=== PATIENT | female | born 1990 | race Caucasian/White ===

== ENCOUNTER 2017-08-12 12:47 | Outpatient (CLI) | payer OTHER ==
[~2017-08-12 12:47] MED LIST: BCPILLS PO; CPR500 PO; OXYC1TAB3 PO
--- NOTE | 2017-08-12 14:45 | Progress Note ---
Progress Note Date of Service Aug 12, 2017. Progress Note Outpatient Note 26 F P1001 at 39.3 weeks admitted for rule out labor. Cervix 3/50/-3/vertex. FHT CAT 1 with no regular contractions. Will d/c home not in labor. Follow up next week in office.
== END 2017-08-12 15:05 | disposition home or self-care (01) ==
LOC: C.LD 12:47 → C.OPB 12:47 → EDSTATUS 13:07 → C.OPB 15:05
PROVIDERS: ATTEND Obstetrics & Gynecology
DX: Z34.83 Encounter for supervision of other normal pregnancy, third trimester (principal); Z3A.39 39 weeks gestation of pregnancy

== ENCOUNTER 2017-08-19 03:47 | Inpatient (IN) | payer OTHER ==
[~2017-08-19] VITALS: Ht 165.1 cm; Wt 95.9 kg
[2017-08-19] MEDS ORDERED: LACTATED RINGER'S 1000ML 1,000 ML IV SCH ×2 (04:16→13:45)
[2017-08-19] MEDS ORDERED: LACTATED RINGER'S 1000ML 1,000 ML IV PRN (04:16)
[2017-08-19] MEDS ORDERED: BUPIVACAINE 0.25% 30 ML VIAL ONE (04:32)
[2017-08-19] MEDS ORDERED: EpHEDrine SULFATE INJ 50 MG/ML AMP ONE (04:33)
[2017-08-19] MEDS ORDERED: FENTANYL 2MCG/ML ROPIV 1.25MG/ML 100ML BAG EPI ONE (04:33)
[2017-08-19] MEDS ORDERED: FENTANYL CITRATE INJ 50 MCG/1 ML 2 ML VIAL ONE (04:33)
[2017-08-19] MEDS ORDERED: FOLI1TAB8 PO (04:40)
[2017-08-19] MEDS ORDERED: PRENTAB26 PO (04:40)
[2017-08-19 04:47] VITALS: Ht 165.1 cm; Wt 95.9 kg
[2017-08-19 05:06] LABS: HEMATOCRIT 35.6 % (37-47); MEAN CELL VOLUME 88.6 fL (80-100); MEAN CORPUSCULAR HEMOGLOBIN 29.9 pg (25-34); MEAN CORPUSCULAR HGB CONC 33.7 g/dl (32-36); MEAN PLATELET VOLUME 10.3 fL (7.4-10.4); PLATELET COUNT 240 K/uL (130-400); RED CELL DISTRIBUTION WIDTH CV 13.6 % (11.5-14.5); RED CELL DISTRIBUTION WIDTH SD 44.1 fL (36.4-46.3); WHITE BLOOD COUNT 12.77 K/uL (4.8-10.8)
[2017-08-19] MEDS ORDERED: LACTATED RINGER'S 1000ML 500 ML IV PRN (05:39)
[2017-08-19] MEDS ORDERED: NALOXONE HCL INJ 1 MG in SODIUM CHLORIDE 0.9% 1000ML 1,000 ML IV PRN (05:39)
[2017-08-19] MEDS ORDERED: DiphenhydrAMINE HCL 50 MG/ML VIAL IV PRN (05:45)
[2017-08-19] MEDS ORDERED: NALOXONE HCL INJ 0.4 MG/1 ML VIAL/CARP IV PRN (05:45)
[2017-08-19] MEDS ORDERED: NALBUPHINE HCL INJ 10 MG/ML AMP IV PRN (05:45)
[2017-08-19] MEDS ORDERED: FENTANYL 2MCG/ML ROPIV 1.25MG/ML 100ML BAG EPI PRN (05:45)
[2017-08-19] MEDS ORDERED: EpHEDrine SULFATE INJ 50 MG/ML AMP IV PRN (05:45)
[2017-08-19] MEDS: ONDANSETRON INJ 2 MG/ML 2 ML VIAL IV PRN ×2 (06:26→13:11)
[2017-08-19] MEDS ORDERED: OXYTOCIN 30 UNITS/500ML NSS IV ONE (08:13)
[2017-08-19] MEDS ORDERED: METHYLERGONOVINE MALEATE 0.2 MG/ML AMP ONE (08:28)
[2017-08-19] MEDS ORDERED: MISOPROSTOL 200 MCG TAB ONE (08:33)
[2017-08-19] MEDS ORDERED: METHYLERGONOVINE MALEATE 0.2 MG/ML AMP IM ONE (09:15)
[2017-08-19] MEDS ORDERED: OXYTOCIN 30 UNITS/500ML NSS IV PRN (09:15)
[2017-08-19] MEDS ORDERED: ACETAMINOPHEN 325 MG TAB PO PRN (09:15)
[2017-08-19] MEDS ORDERED: OXYCODONE/ACETAMINOPHEN 5-325 TAB PO PRN (09:15)
[2017-08-19] MEDS ORDERED: LANOLIN OINT EXT PRN (09:15)
[2017-08-19] MEDS ORDERED: BENZOCAINE 20% AER SPR 82.5 GM CAN EXT PRN (09:15)
[2017-08-19] MEDS ORDERED: ACETAMINOPHEN/CODEINE 300/30MG TAB PO PRN ×2 (09:15)
[2017-08-19] MEDS ORDERED: MISOPROSTOL 200 MCG TAB PR ONE (09:15)
[2017-08-19] MEDS ORDERED: SUPERCREAM 0.870 % 15GM JAR EXT PRN (09:15)
[2017-08-19] MEDS ORDERED: HYDROCORTISONE ACETATE 25 MG SUPP PR PRN (09:15)
--- NOTE | 2017-08-19 09:26 | DELIVERY SUMMARY ---
DATE OF OPERATION: 08/19/2017 DELIVERY NOTE The patient was seen this morning. After sign out, she was 8 cm with bulging membranes and -2 station. At 08:03, she experienced spontaneous rupture of membranes with moderate meconium was recorded. The patient went on to be fully dilated and delivered a live infant female in left occiput anterior presentation. There was no nuchal cord. was delivered, placed on mother's abdomen. Cord was clamped and cut. was 9 and 10. The pediatric team was present for delivery. The umbilical cord broke off before the placenta could be spontaneously delivered. Manual removal of placenta was therefore performed. The patient tolerated the procedure well. Inspection of the placenta manually shows that placenta is completely intact. Bleeding is minimal. Inspection of the perineum showed a second-degree midline laceration which was repaired in layers with 2-0 Vicryl. Estimated blood loss is 500 mL. Infant's weight is pending. There is good hemostasis. Rectal exam post repair showed good sphincter tone. Placenta was sent to pathology for analysis. Baby and mother are doing well in recovery. All instruments were removed from the vagina and were accounted for x2 including sponges, needles and retractors. I attest to the content of the Intraoperative Record and any orders documented therein. Any exception s are noted below.
[2017-08-19] MEDS ORDERED: OXYTOCIN INJ 20 UNITS in LACTATED RINGER'S 1000ML 1,000 ML IV SCH (09:39)
[2017-08-19] MEDS: IBUPROFEN 600 MG TAB PO PRN ×2 (10:18→18:18)
--- NOTE | 2017-08-19 10:35 | Anesthesia Procedure Note ---
Anesthesia Epidural Removal Nt Date & Time Aug 19, 2017 at 10:35 Vital Signs Pain Intensity: 2 Notes Mental Status: alert / awake / arousable, participated in evaluation Nausea / Vomiting: adequately controlled Pain: adequately controlled Airway Patency, RR, SpO2: stable & adequate BP & HR: stable & adequate Hydration State: stable & adequate Neuraxial Anesthesia: was administered Anesthetic Complications: no major complications apparent, pt satisfied with anesthetic care Epidural: removed without complications, with tip intact
[2017-08-19 11:08] VITALS: BP 143/81; PULSE 70; TEMP 36.8; O2SAT 97
[2017-08-19] MEDS ORDERED: LACTATED RINGER'S 1000ML 500 ML IV ONE (14:00)
[2017-08-19 14:07] LABS: HEMATOCRIT 34.4 % (37-47); HEMOGLOBIN 11.6 g/dL (12.0-16.0)
[2017-08-19 16:00] VITALS: BP 137/85; PULSE 83; TEMP 36.9
[2017-08-19 19:50] VITALS: BP 125/85; PULSE 66; TEMP 36.4
[2017-08-19] MEDS: DOCUSATE SODIUM 100 MG CAP PO SCH (20:05)
[2017-08-20 01:00] VITALS: BP 124/86; PULSE 84; TEMP 36.4
[2017-08-20 04:15] VITALS: BP 124/86; PULSE 82; TEMP 36.4
[2017-08-20] MEDS: IBUPROFEN 600 MG TAB PO PRN ×2 (06:13→19:24)
[2017-08-20 06:22] LABS: HEMATOCRIT 34.4 % (37-47); HEMOGLOBIN 11.8 g/dL (12.0-16.0)
[2017-08-20] MEDS: DOCUSATE SODIUM 100 MG CAP PO SCH ×2 (08:55→19:24)
[2017-08-20] MEDS: PRENATAL VITAMIN TAB PO SCH (08:55)
[2017-08-20] MEDS: FERROUS SULFATE 325 MG TAB PO SCH (08:55)
--- NOTE | 2017-08-20 08:55 | OB/GYN Progress Note ---
SERVICE WRITER ADVISOR Progress Note Date of Service Aug 20, 2017. Subjective conversation w/ patient, physical exam Ambulation: ambulating normally Voiding: no voiding problems Passing Gas: Yes Diet Tolerance: Regular Diet Lochia: Moderate Feeding Type: Breast Feeding Pain: 3/10 Notes: Doing well, no concerns. Pain well controlled. Bleeding moderate, no clots. Denies feeling dizzy or lightheaded. Tolerating regular diet. Ambulating without difficulty. Objective Vital Signs Date Time Temp Pulse Resp B/P (MAP) Pulse Ox O2 Delivery O2 Flow Rate FiO2 08/20/17 04:15 36.4 82 20 124/86 (99) Room Air 08/20/17 01:00 36.4 84 18 124/86 (99) Room Air 08/20/17 01:00 Room Air 08/19/17 19:50 36.4 66 16 125/85 (98) Room Air 08/19/17 16:00 Room Air 08/19/17 16:00 36.9 83 20 137/85 (102) Room Air 08/19/17 11:08 97 Room Air 08/19/17 11:08 36.8 70 20 143/81 (101) 97 Room Air Physical Exam General Appearance: WELL-APPEARING Respiratory/Chest: chest non-tender, lungs clear Cardiovascular: regular rate, rhythm Abdomen: normal bowel sounds, soft Fundus: Firm Extremities: normal range of motion, non-tender, no calf tenderness Laboratory Results Last 24 Hours Test 08/19/17 13:55 08/20/17 06:12 Hemoglobin 11.6 g/dL 11.8 g/dL Hematocrit 34.4 % 34.4 % Assessment and Plan Post- Day Number: 1 Continue Routine Care: -H&H stable -Continue routine care -Anticipate D/C tomorrow AM
[2017-08-20 09:45] VITALS: BP 109/68; PULSE 70; TEMP 36.4; O2SAT 97
[2017-08-20 16:30] VITALS: BP 141/86; PULSE 87; TEMP 37; O2SAT 100; O2SAT 97
[2017-08-20] MEDS ORDERED: BISACODYL 5 MG TABEC PO SCH (20:00)
[2017-08-20 23:00] VITALS: BP 117/76; PULSE 76; TEMP 36.8; O2SAT 98
[2017-08-21 06:52] LABS: HEMATOCRIT 32.6 % (37-47); HEMOGLOBIN 10.8 g/dL (12.0-16.0); MEAN CELL VOLUME 89.1 fL (80-100); MEAN CORPUSCULAR HEMOGLOBIN 29.5 pg (25-34); MEAN CORPUSCULAR HGB CONC 33.1 g/dl (32-36); MEAN PLATELET VOLUME 9.9 fL (7.4-10.4); PLATELET COUNT 223 K/uL (130-400); RED CELL DISTRIBUTION WIDTH CV 13.7 % (11.5-14.5); RED CELL DISTRIBUTION WIDTH SD 44.2 fL (36.4-46.3); WHITE BLOOD COUNT 14.01 K/uL (4.8-10.8)
[2017-08-21] MEDS ORDERED: BISACODYL 10 MG SUPP PR PRN (07:00)
[2017-08-21] MEDS: PRENATAL VITAMIN TAB PO SCH (08:14)
[2017-08-21] MEDS: FERROUS SULFATE 325 MG TAB PO SCH (08:14)
[2017-08-21] MEDS: DOCUSATE SODIUM 100 MG CAP PO SCH (08:14)
[2017-08-21 08:35] VITALS: BP 124/82; PULSE 84; TEMP 36.8; O2SAT 98
--- NOTE | 2017-08-21 08:36 | OB/GYN Progress Note ---
CABLE INSTALLER REPAIRER HELPER Progress Note Date of Service: Aug 21, 2017. Patient is seen and examined. She feels well, no complaints. Ambulating without dizziness Voiding without difficulty Tolerating regular diet with out N&V Bleeding is minimal No fever/ chills/ CP/ SOB/ N&V/ Leg pain Breast feeding without problems Discussed contraception with patient in details. Abstinence for 6 weeks, BCP, progestin only pills, Nexplanon, IUD's, They plan to have vasectomy. Date Time Temp Pulse Resp B/P (MAP) Pulse Ox O2 Delivery O2 Flow Rate FiO2 08/20/17 23:00 36.8 76 16 117/76 (90) 98 Room Air 08/20/17 23:00 Room Air 08/20/17 16:30 37.0 87 18 141/86 (104) 100 Room Air 08/20/17 16:30 97 Room Air 08/20/17 09:45 97 Room Air 08/20/17 09:45 36.4 70 20 109/68 (82) 97 Room Air Last 24 Hours Test 08/21/17 06:13 White Blood Count 14.01 K/uL Red Blood Count 3.66 M/uL Hemoglobin 10.8 g/dL Hematocrit 32.6 % Mean Corpuscular Volume 89.1 fL Mean Corpuscular Hemoglobin 29.5 pg Mean Corpuscular Hemoglobin Concent 33.1 g/dl RDW Standard Deviation 44.2 fL RDW Coefficient of Variation 13.7 % Platelet Count 223 K/uL Mean Platelet Volume 9.9 fL PE: General: Alert, orientedx3, NAD Abd: soft, NT, fundus firm, below Umbilicus Perineum intact, Lochia rubra minimal Ext; NT, no edema AP: 26 yo s/p , ppd# 2 VSS Afebrile doing well Continue routine care All questions were answered D/C home , f/u in office
--- NOTE | 2017-08-21 08:37 | Discharge Instructions ---
Discharge Instructions Date of Service Aug 21, 2017. Admission Reason for Admission: LABOR Discharge Discharge Diagnosis / Problem: Discharge Goals Goal(s): Routine recovery after delivery Medications Continue Dispensed Medications: lansinoh Activity Recommendations Activity Limitations: as noted below ACTIVITY RECOMMENDATIONS: * Gradual return to full activity over the next 2-3 weeks. * No lifting - nothing heavier than baby over the next 2-3 weeks. * Do not engage in vigorous exercise, sexual activity or sports until cleared by your physician. * Do not drive or operate any motorized equipment until cleared by your physician. * You may shower/bathe daily. BREAST CARE: If you are not breast feeding: * Wear a supportive bra 24 hours a day for one to two weeks. * Avoid stimulating your breasts and nipples as much as possible during the first few weeks after delivery. * When taking a shower, have the warm water hit your back, not breasts. * When your breasts feel full, apply ice packs. Usually three to four times a day helps ease the discomfort. * Take a mild pain medication (Tylenol/Motrin) when you are uncomfortable. If breast feeding: * Use breast milk to lubricate nipples. Lansinoh cream may be used for sore nipples. You do not need to remove cream prior to breast feeding. If using a different brand of cream, check the label for directions regarding removal of cream prior to nursing. * Wear a supportive bra. * If having problems with breasts or breast feeding, call a corporate learning consultant or your health care provider. EPISIOTOMY CARE: After delivery, if you have an episiotomy (stitches), the following steps will ease discomfort and aid healing. * For the first 24 hours after delivery, place ice packs next to your episiotomy to help reduce swelling. * After the first 24 hour-period, sitz baths, either portable or in the tub, are suggested. A shower with a shower arm sprayed over the episiotomy may be comforting. * Antonia care should be done after each voiding and bowel movement. Squirt warm water from a plastic bottle over the perineum (region of the body between the anus and urinary opening) and pat dry. * Use Dermoplast to ease discomfort. Shake container. [place] directly over the episiotomy. * Place a Tucks on a clean sanitary pad next to your episiotomy. OVER THE COUNTER MEDICATION: * For discomfort or pain, you may use Acetaminophen (Tylenol), Ibuprofen (Advil ), or Naproxen (Aleve) following the package directions. * For constipation you may use Colace following the package directions. SPECIAL CARE INSTRUCTIONS: When you are discharged from the hospital, it is important for you to follow the instructions listed below: * During the first week at home, you should be able to care for yourself and your baby. In addition, the usual light household activities are encouraged. * Limit your activities to the way you feel. Do not try to clean the house or move furniture. Be sensible. * If you actively engage in sports and have done so up until the time of your delivery, you may resume these activities as soon as you feel able. This may take up to one month or even longer. Use good judgment. * Continue to take your vitamins for at least six weeks after the of your baby. * Your diet need not be limited unless you were on a special diet before your delivery. Breast-feeding mothers need around 2500 calories per day and at least 64-80 ounces of fluid per day (8 to 10 glasses). * You should eat foods from the four major food groups. Crash diets or fad diets are to be avoided. Eating lean meats, fresh fruits and vegetables, low-fat dairy products, high fiber foods and a regular exercise program, will help you get back to your pre- weight without putting your health at risk. * Constipation is sometimes a problem after delivery. Take a mild laxative as needed. If breast feeding, Milk of Magnesia is acceptable to use. You may use a suppository or Fleets enema if no episiotomy. * A daily shower or tub bath is suggested. Be sure to thoroughly and gently dry the perineum. * A bloody vaginal discharge will usually continue until around four weeks post . A small amount of bleeding may continue for as long as six weeks. Vaginal discharge changes from the bright red bleeding after delivery to pink then brownish and finally yellowish-pink before becoming white and disappearing. * Bleeding may increase with activity. Your first period may come in 4-8 weeks. If you are breast feeding, your period may be delayed even longer. * Mccleary (sex) can begin whenever both you and your partner feel comfortable and do not have any form of genital infection. It is recommended that you wait until after your return appointment and discuss with your physician. If you have questions, please talk to your health care practitioner. A condom should be used to prevent infection and . * Foreplay, gentle intercourse and lubrication is very important the first several times to prevent pain. A water-based lubricant such as K-Y jelly or Astroglide may be used. * Tampons may be used six weeks after delivery. * Douching should be avoided for 6 weeks after delivery. * If you have RH negative blood and your baby is RH positive, you will receive RHOGAM by injection prior to discharge. The nurse will give you a card to keep with you that has the date and place that you received RHOGAM after delivery. * During your care, you had a Rubella screen done to check for the presence of rubella antibodies in your blood. If your test was negative, you will receive a Rubella vaccine prior to discharge. This vaccine may cause a fever, soreness at the injection site and flu-like symptoms. If these symptoms persist, notify your health care practitioner. is not advised for three months after a Rubella vaccine. There is a higher chance of having a baby with defects if conceived within three months of getting the vaccine. * If you were discharged 24 hours from delivery or before 48 hours: Visiting nurses will come to your home 48 hours after discharge to assess you and your baby. The visiting nurse will meet with you while you are in the hospital to arrange a time and get directions to your home. * Verbalizes understanding of car seat law as reviewed with patient nursing. * Car Seat hand-out given and reviewed with patient by nursing. * Shaken baby information reviewed with patient by nursing. Call you doctor if: * Heavy bleeding (saturating several pads an hour) or passing clots the size of your fist. * A fever >101 degrees F (38.3 degrees C) on two occasions four hours apart and/or chills. * Unusual pain in the pelvic or vaginal areas. * "Baby Blues" lasting longer than two weeks. If you have any questions or concerns, call your health care practitioner at . FOLLOW-UP VISIT: * Please call the office at to schedule a 6 week examination. It is important you keep this appointment. * It is important for you to make arrangements for either yearly or twice yearly check-ups thereafter. . Current Hospital Diet Patient's current hospital diet: Regular OB Diet Discharge Diet Recommended Diet: Regular Diet Pending Studies Studies pending at discharge: no Medical Emergencies . Who to Call and When: Medical Emergencies: If at any time you feel your situation is an emergency, please call 911 immediately. . Non-Emergent Contact Non-Emergency issues call your: Specialist Call Non-Emergent contact if: temperature is above 100.5, your pain is not controlled, wound has increased drainage . . "Provider Documentation" section prepared by Jacky Matos. . VTE Core Measure Inpt VTE Proph given/why not?: Treatment not indicated
[2017-08-21 12:00] VITALS: BP_DIAS 82; PULSE 84; TEMP 36.8
== END 2017-08-21 12:00 | disposition home or self-care (01) | DRG 775 ==
LOC: C.LD 03:47 → C.OPB 03:47 → C.LD 04:17 → C.OPB 04:17 → C.OBG 11:19
PROVIDERS: ADMIT Obstetrics & Gynecology; ATTEND Obstetrics & Gynecology
PROC: 10E0XZZ Delivery of Products of Conception, External Approach (ICD-10-PCS; principal; 2017-08-19)
PROC: 0KQM0ZZ Repair Perineum Muscle, Open Approach (ICD-10-PCS; principal; 2017-08-19)
DX: O77.0 Labor and delivery complicated by meconium in amniotic fluid (principal); O70.1 Second degree perineal laceration during delivery; Z3A.40 40 weeks gestation of pregnancy; Z37.0 Single live birth